=== PATIENT | male | born 1950 | race Caucasian/White ===

== ENCOUNTER 2018-11-07 14:04 | Emergency (ER) | payer MEDICARE, MEDICAID ==
[~2018-11-07] VITALS: Ht 167.6 cm; Wt 119.0 kg
[~2018-11-07 14:04] MED LIST: ALLO100T PO; CARV6.2548 PO; CLOP75TA16 PO; ESOM40CA PO; FURO40TA5 PO; HYDR-3927 GT; METO10TA94 PO; SIMV40TA5 PO; WARF3TAB28 PO
[2018-11-07] MEDS ORDERED: FAMOTIDINE 20MG/2ML VIAL IV STA (14:59)
[2018-11-07] MEDS ORDERED: MAGNESIUM/ALUMINUM HYDROXIDE/SIMETHICONE 30ML UDC PO STA (14:59)
[2018-11-07] MEDS ORDERED: ONDANSETRON HCL 4MG/2ML INJ IV STA (14:59)
[2018-11-07] MEDS ORDERED: MORPHINE SULFATE 4 MG/ML CPJ (NOT FOR IM USE) IV STA (14:59)
[2018-11-07 15:40] LABS: BASOPHILS % 1.1 % (0.0-2.0); EOSINOPHILS % 0.3 % (0.0-5.0); HEMATOCRIT. 45.1 % (42.0-52.0); HEMOGLOBIN. 14.9 g/dL (14.0-18.0); LYMPHOCYTES % 11.8 % (20.0-50.0); MEAN CORPUSCULAR HEMOGLOBIN 32.9 pg (28.0-32.0); MEAN CORPUSCULAR VOLUME 99.8 fL (80.0-94.0); MEAN PLATELET VOLUME 10.1 fl (7.4-10.4); MONOCYTES % 8.7 % (2.0-8.0); NEUTROPHILS % 78.1 % (40.0-76.0); PLATELET 132 x1000/uL (130-400); RED BLOOD CELL COUNT 4.52 mill/uL (4.7-6.1); RED CELL DISTRIBUTION WIDTH 15.4 % (11.6-14.6)
[2018-11-07 15:45] LABS: CHLORIDE 101 mEq/L (98-107)
[2018-11-07 15:46] LABS: INR 1.5; PROTHROMBIN TIME 15.7 sec (9.6-11.0)
[2018-11-07 16:55] LABS: CLARITY URINE CLEAR (CLEAR); COLOR URINE YELLOW (YELLOW); KETONES URINE NEGATIVE (NEGATIVE); LEUKOCYTE ESTERASE URINE NEGATIVE (NEGATIVE); NITRITE URINE NEGATIVE (NEGATIVE); OCCULT BLOOD URINE NEGATIVE (NEGATIVE); PH URINE 7.5 (4.5-8.0); PROTEIN URINE NEGATIVE (NEGATIVE); SPECIFIC GRAVITY URINE 1.008 (1.005-1.030)
[2018-11-07 18:00] VITALS: BP 114/76
== END 2018-11-07 18:36 | disposition home or self-care (01) ==
LOC: ER 14:04
DX: R18.8 Other ascites (principal); Z90.49 Acquired absence of other specified parts of digestive tract; Z95.0 Presence of cardiac pacemaker; Z79.899 Other long term (current) drug therapy
CPT/HCPCS: 36415; 71045; 74176; 80053; 81003; 83690; 85025; 85610; 93005; 96374; 96375; 99284; J2270; J2405; J3490

== ENCOUNTER 2018-11-12 12:19 | Inpatient (IN) | payer MEDICARE, MEDICAID ==
[~2018-11-12] VITALS: Ht 185.4 cm; Wt 107.2 kg
[2018-11-12 14:27] LABS: BASOPHILS % 0.6 % (0.0-2.0); EOSINOPHILS % 0.3 % (0.0-5.0); HEMATOCRIT. 46.8 % (42.0-52.0); HEMOGLOBIN. 15.6 g/dL (14.0-18.0); LYMPHOCYTES % 9.5 % (20.0-50.0); MEAN CORPUSCULAR HEMOGLOBIN 33.1 pg (28.0-32.0); MEAN CORPUSCULAR VOLUME 99.1 fL (80.0-94.0); MEAN PLATELET VOLUME 9.5 fl (7.4-10.4); MONOCYTES % 10.4 % (2.0-8.0); NEUTROPHILS % 79.2 % (40.0-76.0); PLATELET 140 x1000/uL (130-400); RED BLOOD CELL COUNT 4.73 mill/uL (4.7-6.1); RED CELL DISTRIBUTION WIDTH 15.5 % (11.6-14.6)
[2018-11-12 14:34] LABS: CHLORIDE 103 mEq/L (98-107)
[2018-11-12 14:36] LABS: INR 1.5; PARTIAL THROMBOPLASTIN TIME 30.5 sec (23.4-31.0); PROTHROMBIN TIME 14.8 sec (9.6-11.0)
[2018-11-12] MEDS ORDERED: FAMOTIDINE 20MG/2ML VIAL IV STA (14:51)
[2018-11-12] MEDS ORDERED: ONDANSETRON HCL 4MG/2ML INJ IV STA (14:51)
[2018-11-12] MEDS ORDERED: FUROSEMIDE 20MG/2ML VIAL IVP ONE (15:30)
[2018-11-12] MEDS ORDERED: HYDROCODONE/ACETAMINOPHEN 5/325MG TABLET PO PRN (16:15)
[2018-11-12] MEDS ORDERED: DOCUSATE SODIUM 100MG CAPSULE PO PRN (16:15)
[2018-11-12] MEDS ORDERED: LORAZEPAM 0.5MG TABLET PO PRN (16:15)
[2018-11-12] MEDS ORDERED: IPRATROPIUM/ALBUTEROL 0.5-3(2.5)MG/3ML NEB INH PRN (16:15)
[2018-11-12] MEDS ORDERED: GUAIFENESIN 200MG/10ML SUGAR FREE UDC PO PRN (16:15)
[2018-11-12] MEDS ORDERED: ACETAMINOPHEN 325MG TABLET PO PRN (16:15)
[2018-11-12] MEDS ORDERED: CLONIDINE 0.1MG TABLET PO PRN (16:15)
[2018-11-12] MEDS ORDERED: DIPHENHYDRAMINE 50MG/ML VIAL IV PRN (16:15)
[2018-11-12] MEDS ORDERED: ONDANSETRON HCL 4MG/2ML INJ IV PRN (16:15)
[2018-11-12] MEDS ORDERED: ACETAMINOPHEN 650MG SUPP PR PRN (16:15)
[2018-11-12] MEDS ORDERED: MAGNESIUM/ALUMINUM HYDROXIDE/SIMETHICONE 30ML UDC PO PRN (16:15)
[2018-11-12 16:42] LABS: BG BASE EXCESS 2.1 mmol/L (-2.0-2.0); BG CARBOXYHEMOGLOBIN 0.9 % (0.5-1.5); BG DEOXYHEMOGLOBIN 5.5 % (0.0-5.0); BG FRACTION INSPIRED OXYGEN 21; BG HCO3 ACT 25.7 mmol/L (22.0-26.0); BG OXYGEN SATURATION 94.5 % (92.0-98.5); BG OXYHEMOGLOBIN 93.6 % (94.0-97.0); BG PH 7.459 (7.350-7.450); BG PO2 73.1 mmHg (75.0-100.0); BG SAMPLE SITE RIGHT BRACHIAL; BG TOTAL HEMOGLOBIN 15.6 g/dL (12.0-18.0); BG VENT MODE ROOM AIR
[2018-11-12] MEDS ORDERED: ASPIRIN 81MG TABLET PO ONE (17:00)
[2018-11-12 17:26] LABS: *AMPHETAMINES SCREEN URINE NEGATIVE (NEGATIVE); *BARBITURATES SCREEN URINE NEGATIVE (NEGATIVE); *BENZODIAZEPINES SCREEN URINE NEGATIVE (NEGATIVE)
[2018-11-12 17:27] LABS: *COCAINE SCREEN URINE NEGATIVE (NEGATIVE); CANNABINOID URINE SCREEN NEGATIVE (NEGATIVE); METHADONE URINE SCREEN NEGATIVE (NEGATIVE); OPIATES URINE SCREEN NEGATIVE (NEGATIVE); PHENCYCLIDINE URINE SCREEN NEGATIVE (NEGATIVE)
[2018-11-12] MEDS: ENOXAPARIN 40MG/0.4ML SYR SUBCUT SCH (21:48)
[2018-11-12 22:55] VITALS: BP 109/73
[2018-11-12 23:06] LABS: CREATINE KINASE MB FRACTION 2.4 ng/mL (0.5-3.6)
[2018-11-12 23:55] VITALS: BP 109/73
[2018-11-13 01:07] LABS: CLARITY URINE CLEAR (CLEAR); COLOR URINE DARK YELLOW (YELLOW); KETONES URINE NEGATIVE (NEGATIVE); LEUKOCYTE ESTERASE URINE NEGATIVE (NEGATIVE); NITRITE URINE NEGATIVE (NEGATIVE); OCCULT BLOOD URINE NEGATIVE (NEGATIVE); PROTEIN URINE TRACE (NEGATIVE); SPECIFIC GRAVITY URINE 1.014 (1.005-1.030)
[2018-11-13 04:00] VITALS: BP 92/60
[2018-11-13 06:34] LABS: BASOPHILS % 0.8 % (0.0-2.0); EOSINOPHILS % 0.3 % (0.0-5.0); HEMATOCRIT. 46.1 % (42.0-52.0); HEMOGLOBIN. 15.2 g/dL (14.0-18.0); LYMPHOCYTES % 11.1 % (20.0-50.0); MEAN CORPUSCULAR HEMOGLOBIN 32.8 pg (28.0-32.0); MEAN CORPUSCULAR VOLUME 99.6 fL (80.0-94.0); NEUTROPHILS % 76.8 % (40.0-76.0); PLATELET 144 x1000/uL (130-400); RED BLOOD CELL COUNT 4.63 mill/uL (4.7-6.1); RED CELL DISTRIBUTION WIDTH 15.6 % (11.6-14.6)
[2018-11-13 07:39] LABS: CHLORIDE 104 mEq/L (98-107)
[2018-11-13 07:56] LABS: LDL CHOLESTEROL 53 mg/dL (5-100)
[2018-11-13 07:57] LABS: CREATINE KINASE 56 IU/L (39-308); CREATINE KINASE MB FRACTION 2.1 ng/mL (0.5-3.6); HDL CHOLESTEROL 23 mg/dL (40-59); T4 FREE 1.53 ng/dL (0.76-1.46)
[2018-11-13 08:00] VITALS: BP 104/64
[2018-11-13] MEDS: FUROSEMIDE 40MG/4ML VIAL IV SCH (09:24)
[2018-11-13] MEDS: ASPIRIN 81MG EC TABLET PO SCH (09:24)
[2018-11-13 12:00] VITALS: BP 128/85
[2018-11-13 16:00] VITALS: BP 95/57
[2018-11-13 20:00] VITALS: BP 104/71
[2018-11-13] MEDS: ENOXAPARIN 40MG/0.4ML SYR SUBCUT SCH (21:52)
[2018-11-14] VITALS: BP 120/62
[2018-11-14 04:00] VITALS: BP 93/63
[2018-11-14 06:12] LABS: BASOPHILS % 0.8 % (0.0-2.0); EOSINOPHILS % 0.6 % (0.0-5.0); HEMATOCRIT. 45.2 % (42.0-52.0); HEMOGLOBIN. 14.9 g/dL (14.0-18.0); LYMPHOCYTES % 14.6 % (20.0-50.0); MEAN CORPUSCULAR HEMOGLOBIN 32.7 pg (28.0-32.0); MEAN CORPUSCULAR VOLUME 99.1 fL (80.0-94.0); MEAN PLATELET VOLUME 9.9 fl (7.4-10.4); MONOCYTES % 12.2 % (2.0-8.0); NEUTROPHILS % 71.8 % (40.0-76.0); PLATELET 144 x1000/uL (130-400); RED BLOOD CELL COUNT 4.56 mill/uL (4.7-6.1); RED CELL DISTRIBUTION WIDTH 15.2 % (11.6-14.6)
[2018-11-14 08:00] VITALS: BP 106/63
[2018-11-14] MEDS: ASPIRIN 81MG EC TABLET PO SCH (08:34)
[2018-11-14] MEDS: ENOXAPARIN 30MG/0.3ML SYR SUBCUT SCH ×2 (08:35→20:15)
[2018-11-14] MEDS: FUROSEMIDE 40MG/4ML VIAL IV SCH (09:00)
[2018-11-14 12:00] VITALS: BP 114/77
[2018-11-14 16:00] VITALS: BP 117/76
[2018-11-14 20:00] VITALS: BP 110/78
[2018-11-15] VITALS: BP 114/78
[2018-11-15 04:00] VITALS: BP 98/66
[2018-11-15 06:52] LABS: BASOPHILS % 0.6 % (0.0-2.0); EOSINOPHILS % 0.3 % (0.0-5.0); HEMATOCRIT. 44.9 % (42.0-52.0); HEMOGLOBIN. 14.7 g/dL (14.0-18.0); LYMPHOCYTES % 15.9 % (20.0-50.0); MEAN CORPUSCULAR HEMOGLOBIN 32.6 pg (28.0-32.0); MEAN CORPUSCULAR VOLUME 99.4 fL (80.0-94.0); MEAN PLATELET VOLUME 9.7 fl (7.4-10.4); MONOCYTES % 11.3 % (2.0-8.0); NEUTROPHILS % 71.9 % (40.0-76.0); PLATELET 138 x1000/uL (130-400); RED BLOOD CELL COUNT 4.52 mill/uL (4.7-6.1); RED CELL DISTRIBUTION WIDTH 15.2 % (11.6-14.6)
[2018-11-15 08:00] VITALS: BP 108/69
[2018-11-15] MEDS: ASPIRIN 81MG EC TABLET PO SCH (08:59)
[2018-11-15] MEDS: ENOXAPARIN 30MG/0.3ML SYR SUBCUT SCH (09:00)
[2018-11-15] MEDS: FUROSEMIDE 40MG/4ML VIAL IV SCH (09:00)
[2018-11-15 12:00] VITALS: BP 114/62
[2018-11-15] MEDS ORDERED: SORBITOL 70% SOLN 30ML PO NR (12:45)
[2018-11-15 16:00] VITALS: BP 114/72
[2018-11-15] MEDS ORDERED: DOCUSATE SODIUM 100MG CAPSULE PO SCH (17:00)
[2018-11-15 17:21] LABS: HEPATITIS B SURFACE ANTIGEN NEGATIVE
[2018-11-15 17:51] LABS: HEPATITIS A AB IGM NEGATIVE (NEGATIVE)
[2018-11-15 18:30] VITALS: BP 140/70
== END 2018-11-15 17:00 | disposition home or self-care (01) | DRG 291 ==
LOC: ER 12:19 → 5WST 15:36 → EDBEDREQ 15:40 → ENRESERV 22:22 → CANRESERV 22:22 → ENRESERV 22:23
PROVIDERS: ADMIT Internal Medicine; ATTEND Internal Medicine
PROC: 4B02XTZ Measurement of Cardiac Defibrillator, External Approach (ICD-10-PCS; principal; 2018-11-13)
DX: I13.0 Hypertensive heart and chronic kidney disease with heart failure and stage 1 through stage 4 chronic kidney disease, or unspecified chronic kidney disease (principal); I50.23 Acute on chronic systolic (congestive) heart failure; I48.1 Persistent atrial fibrillation; D68.59 Other primary thrombophilia; K76.6 Portal hypertension; R18.8 Other ascites; E66.2 Morbid (severe) obesity with alveolar hypoventilation; I42.0 Dilated cardiomyopathy; N32.9 Bladder disorder, unspecified; R16.0 Hepatomegaly, not elsewhere classified; N18.9 Chronic kidney disease, unspecified; K59.00 Constipation, unspecified; R74.0 Nonspecific elevation of levels of transaminase and lactic acid dehydrogenase [LDH]; E80.6 Other disorders of bilirubin metabolism; K74.60 Unspecified cirrhosis of liver; E78.5 Hyperlipidemia, unspecified; K57.90 Diverticulosis of intestine, part unspecified, without perforation or abscess without bleeding; R73.9 Hyperglycemia, unspecified; I48.2 Chronic atrial fibrillation; Z79.01 Long term (current) use of anticoagulants; Z79.02 Long term (current) use of antithrombotics/antiplatelets; Z68.31 Body mass index [BMI] 31.0-31.9, adult; Z95.810 Presence of automatic (implantable) cardiac defibrillator; Z90.49 Acquired absence of other specified parts of digestive tract; Z95.0 Presence of cardiac pacemaker
CPT/HCPCS: 36415; 36600; 71045; 74176; 76705; 80048; 80061; 80076; 80162; 80305; 82140; 82150; 82375; 82550; 82553; 82805; 83036; 83735; 83880; 84439; 84443; 84484; 86705; 86709; 86803; 87340; 93005; 93306; 93970; 94618; 96374; 96375; 97162; 99291; J1650; J1940; J2405; J3490

== ENCOUNTER 2018-11-17 19:41 | Emergency (ER) | payer MEDICARE, MEDICAID ==
[~2018-11-17] VITALS: Ht 177.8 cm; Wt 111.7 kg
[~2018-11-17 19:41] MED LIST changes: -CARV6.2548 PO; -FURO40TA5 PO; -METO10TA94 PO; -SIMV40TA5 PO; -WARF3TAB28 PO
[2018-11-17 23:03] LABS: BASOPHILS % 0.7 % (0.0-2.0); EOSINOPHILS % 0.3 % (0.0-5.0); HEMOGLOBIN. 15.3 g/dL (14.0-18.0); LYMPHOCYTES % 9.9 % (20.0-50.0); MEAN CORPUSCULAR HEMOGLOBIN 32.2 pg (28.0-32.0); MEAN CORPUSCULAR VOLUME 98.5 fL (80.0-94.0); MEAN PLATELET VOLUME 9.3 fl (7.4-10.4); MONOCYTES % 10.1 % (2.0-8.0); PLATELET 158 x1000/uL (130-400); RED BLOOD CELL COUNT 4.77 mill/uL (4.7-6.1); RED CELL DISTRIBUTION WIDTH 15.5 % (11.6-14.6)
[2018-11-17 23:07] LABS: CHLORIDE 102 mEq/L (98-107)
[2018-11-17 23:09] LABS: INR 1.5; PROTHROMBIN TIME 15.3 sec (9.6-11.0)
[2018-11-18 00:11] LABS: CLARITY URINE CLEAR (CLEAR); COLOR URINE DARK YELLOW (YELLOW); KETONES URINE NEGATIVE (NEGATIVE); LEUKOCYTE ESTERASE URINE TRACE (NEGATIVE); NITRITE URINE NEGATIVE (NEGATIVE); OCCULT BLOOD URINE NEGATIVE (NEGATIVE); PROTEIN URINE 1+ (NEGATIVE); SPECIFIC GRAVITY URINE 1.017 (1.005-1.030)
[2018-11-18 03:00] VITALS: BP 124/86
== END 2018-11-18 03:47 | disposition home or self-care (01) ==
LOC: ER 20:00
DX: R10.13 Epigastric pain (principal); I51.9 Heart disease, unspecified; Z90.49 Acquired absence of other specified parts of digestive tract; Z79.899 Other long term (current) drug therapy
CPT/HCPCS: 36415; 74176; 99284

== ENCOUNTER 2018-11-20 21:32 | Inpatient (IN) | payer MEDICARE, MEDICAID ==
[~2018-11-20] VITALS: Ht 182.9 cm; Wt 109.5 kg
[2018-11-20 22:30] VITALS: BP 120/77
[2018-11-20 23:30] VITALS: BP 126/77
[2018-11-21] VITALS (15 sets, daily range): BP systolic 91–135; BP diastolic 30–79
[2018-11-21] MEDS ORDERED: ATOR10TA69 PO (00:09)
[2018-11-21] MEDS ORDERED: SPIR50TA5 PO (00:11)
[2018-11-21] MEDS ORDERED: SACU1TAB PO (00:11)
[2018-11-21] MEDS ORDERED: OMEP20CA10 PO (00:12)
[2018-11-21] MEDS ORDERED: FURO80TA3 PO (00:14)
[2018-11-21] MEDS ORDERED: POTA10TA11 PO (00:14)
[2018-11-21] MEDS ORDERED: CARV3.1242 PO (00:16)
[2018-11-21] MEDS ORDERED: ASPI-1158 PO (00:16)
[2018-11-21] MEDS ORDERED: DIGO125T82 PO (00:17)
[2018-11-21] MEDS ORDERED: AMIO100T4 PO (00:18)
[2018-11-21] MEDS ORDERED: MEXI200C PO (00:19)
[2018-11-21] MEDS ORDERED: APIX5TAB PO (00:22)
[2018-11-21] MEDS ORDERED: ALEN70TA46 PO (00:33)
[2018-11-21] MEDS ORDERED: ONDANSETRON HCL 4MG/2ML INJ IV PRN (01:00)
[2018-11-21] MEDS ORDERED: NON FORMULARY PATIENT HOME MED XX SCH (03:15)
[2018-11-21] MEDS ORDERED: ENOXAPARIN 40MG/0.4ML SYR SUBCUT SCH (06:00)
[2018-11-21 06:35] LABS: BASOPHILS % 0.7 % (0.0-2.0); EOSINOPHILS % 0.6 % (0.0-5.0); HEMATOCRIT. 42.9 % (42.0-52.0); HEMOGLOBIN. 14.1 g/dL (14.0-18.0); LYMPHOCYTES % 14.7 % (20.0-50.0); MEAN CORPUSCULAR VOLUME 97.2 fL (80.0-94.0); MEAN PLATELET VOLUME 9.5 fl (7.4-10.4); MONOCYTES % 11.1 % (2.0-8.0); NEUTROPHILS % 72.9 % (40.0-76.0); PLATELET 137 x1000/uL (130-400); RED BLOOD CELL COUNT 4.41 mill/uL (4.7-6.1); RED CELL DISTRIBUTION WIDTH 15.3 % (11.6-14.6)
[2018-11-21 07:34] LABS: CHLORIDE 104 mEq/L (98-107)
[2018-11-21] MEDS ORDERED: DOBUTAMINE 250MG PREMIX 250 ML IV SCH (08:00)
[2018-11-21] MEDS: OMEPRAZOLE 20MG CAPSULE EXTENDED RELEASE PO SCH (08:14)
[2018-11-21] MEDS ORDERED: APIXABAN 5 MG TABLET PO SCH (09:00)
[2018-11-21] MEDS ORDERED: MEXILETINE HCL 200 MG CAPSULE PO SCH (09:00)
[2018-11-21] MEDS ORDERED: POTASSIUM CHLORIDE 8 MEQ TABLET.SA PO SCH (09:00)
[2018-11-21] MEDS ORDERED: POTASSIUM CHLORIDE 10MEQ TABLET SR PO SCH (09:00)
[2018-11-21] MEDS: APIXABAN 5 MG TABLET PO SCH ×2 (09:39→18:07)
[2018-11-21] MEDS: SPIRONOLACTONE 50MG TABLET PO SCH (09:39)
[2018-11-21] MEDS: CARVEDILOL 3.125 MG TABLET PO SCH ×2 (09:39→21:06)
[2018-11-21] MEDS: ALLOPURINOL 100 MG TABLET PO SCH ×2 (09:39→18:07)
[2018-11-21] MEDS: ASPIRIN 81MG TABLET PO SCH (09:40)
[2018-11-21 14:56] LABS: BG BASE EXCESS 2.6 mmol/L (-2.0-2.0); BG DEOXYHEMOGLOBIN 2.9 % (0.0-5.0); BG FRACTION INSPIRED OXYGEN 21; BG HCO3 ACT 25.6 mmol/L (22.0-26.0); BG METHEMOGLOBIN 0.4 % (0.0-1.5); BG OXYGEN SATURATION 97.1 % (92.0-98.5); BG OXYHEMOGLOBIN 95.7 % (94.0-97.0); BG PCO2 34.9 mmHg (35.0-45.0); BG PH 7.484 (7.350-7.450); BG PO2 86.7 mmHg (75.0-100.0); BG SAMPLE SITE RIGHT RADIAL; BG TOTAL HEMOGLOBIN 14.7 g/dL (12.0-18.0); BG VENT MODE ROOM AIR
[2018-11-21] MEDS: FUROSEMIDE 40MG/4ML VIAL IVP SCH ×2 (15:20→23:37)
[2018-11-21 16:11] LABS: INR 1.6; PROTHROMBIN TIME 16.1 sec (9.6-11.0)
[2018-11-21] MEDS: DOBUTAMINE 250MG PREMIX 250 ML IV SCH ×3 (16:34→23:46)
[2018-11-21] MEDS: DIGOXIN 125MCG TABLET PO SCH (18:07)
[2018-11-21] MEDS: ATORVASTATIN CALCIUM 10MG TABLET PO SCH (21:06)
[2018-11-21 22:53] LABS: CLARITY URINE CLEAR (CLEAR); COLOR URINE YELLOW (YELLOW); KETONES URINE NEGATIVE (NEGATIVE); LEUKOCYTE ESTERASE URINE NEGATIVE (NEGATIVE); NITRITE URINE NEGATIVE (NEGATIVE); OCCULT BLOOD URINE NEGATIVE (NEGATIVE); PH URINE 8.5 (4.5-8.0); PROTEIN URINE NEGATIVE (NEGATIVE); SPECIFIC GRAVITY URINE 1.006 (1.005-1.030)
[2018-11-22] VITALS (15 sets, daily range): BP systolic 79–123; BP diastolic 45–76
[2018-11-22] MEDS: DOBUTAMINE 250MG PREMIX 250 ML IV SCH ×3 (03:39→18:54)
[2018-11-22] MEDS: FUROSEMIDE 40MG/4ML VIAL IVP SCH ×2 (06:30→16:20)
[2018-11-22] MEDS: OMEPRAZOLE 20MG CAPSULE EXTENDED RELEASE PO SCH (06:30)
[2018-11-22 06:55] LABS: HEMATOCRIT 41.5 % (42.0-52.0); HEMOGLOBIN 13.6 g/dL (14.0-18.0); MEAN CORPUSCULAR HEMOGLOBIN 31.9 pg (28.0-32.0); MEAN CORPUSCULAR VOLUME 97.4 fL (80.0-94.0); PLATELET 135 x1000/uL (130-400); RED BLOOD CELL COUNT 4.26 mill/uL (4.7-6.1); RED CELL DISTRIBUTION WIDTH 15.4 % (11.6-14.6)
[2018-11-22 07:22] LABS: CHLORIDE 103 mEq/L (98-107)
[2018-11-22] MEDS ORDERED: POTASSIUM CHLORIDE 20MEQ TABLET SR PO SCH (09:00)
[2018-11-22] MEDS: ALLOPURINOL 100 MG TABLET PO SCH ×2 (10:19→18:53)
[2018-11-22] MEDS: SPIRONOLACTONE 50MG TABLET PO SCH (10:21)
[2018-11-22] MEDS: APIXABAN 5 MG TABLET PO SCH ×2 (10:22→18:53)
[2018-11-22] MEDS: CARVEDILOL 3.125 MG TABLET PO SCH ×2 (10:22→21:00)
[2018-11-22] MEDS: ASPIRIN 81MG TABLET PO SCH (10:23)
[2018-11-22] MEDS: DIGOXIN 125MCG TABLET PO SCH (18:00)
[2018-11-22] MEDS: POTASSIUM CHLORIDE 20MEQ TABLET SR PO SCH (18:53)
[2018-11-22] MEDS: ATORVASTATIN CALCIUM 10MG TABLET PO SCH (22:35)
[2018-11-23] VITALS (13 sets, daily range): BP systolic 92–137; BP diastolic 49–91
[2018-11-23] MEDS: FUROSEMIDE 40MG/4ML VIAL IVP SCH ×2 (00:55→07:00)
[2018-11-23] MEDS: DOBUTAMINE 250MG PREMIX 250 ML IV SCH ×2 (02:20→09:02)
[2018-11-23 05:58] LABS: HEMOGLOBIN 13.4 g/dL (14.0-18.0); MEAN CORPUSCULAR HEMOGLOBIN 31.6 pg (28.0-32.0); MEAN CORPUSCULAR VOLUME 96.9 fL (80.0-94.0); PLATELET 126 x1000/uL (130-400); RED BLOOD CELL COUNT 4.23 mill/uL (4.7-6.1); RED CELL DISTRIBUTION WIDTH 15.3 % (11.6-14.6)
[2018-11-23] MEDS: OMEPRAZOLE 20MG CAPSULE EXTENDED RELEASE PO SCH (09:01)
[2018-11-23] MEDS: CARVEDILOL 3.125 MG TABLET PO SCH ×2 (09:01→21:33)
[2018-11-23] MEDS: ASPIRIN 81MG TABLET PO SCH (09:01)
[2018-11-23] MEDS: APIXABAN 5 MG TABLET PO SCH ×2 (09:01→16:51)
[2018-11-23] MEDS: POTASSIUM CHLORIDE 20MEQ TABLET SR PO SCH ×2 (09:01→16:51)
[2018-11-23] MEDS: SPIRONOLACTONE 50MG TABLET PO SCH (09:02)
[2018-11-23] MEDS: ALLOPURINOL 100 MG TABLET PO SCH ×2 (09:02→16:51)
[2018-11-23] MEDS ORDERED: SIMETHICONE 80MG TABLET CHEW PO PRN (14:45)
[2018-11-23] MEDS: DIGOXIN 125MCG TABLET PO SCH (18:35)
[2018-11-23] MEDS: TRAMADOL 50MG TABLET PO PRN (21:31)
[2018-11-23] MEDS: ATORVASTATIN CALCIUM 10MG TABLET PO SCH (21:33)
[2018-11-23] MEDS: FUROSEMIDE 40MG TABLET PO SCH (21:33)
[2018-11-24] VITALS (12 sets, daily range): BP systolic 96–137; BP diastolic 57–88
[2018-11-24 06:18] LABS: HEMATOCRIT 45.8 % (42.0-52.0); HEMOGLOBIN 14.9 g/dL (14.0-18.0); MEAN CORPUSCULAR HEMOGLOBIN 31.9 pg (28.0-32.0); MEAN CORPUSCULAR VOLUME 97.7 fL (80.0-94.0); PLATELET 152 x1000/uL (130-400); RED BLOOD CELL COUNT 4.68 mill/uL (4.7-6.1); RED CELL DISTRIBUTION WIDTH 15.7 % (11.6-14.6)
[2018-11-24] MEDS: TRAMADOL 50MG TABLET PO PRN (06:30)
[2018-11-24] MEDS: OMEPRAZOLE 20MG CAPSULE EXTENDED RELEASE PO SCH (06:31)
[2018-11-24] MEDS: ALLOPURINOL 100 MG TABLET PO SCH (08:39)
[2018-11-24] MEDS: APIXABAN 5 MG TABLET PO SCH (08:39)
[2018-11-24] MEDS: CARVEDILOL 3.125 MG TABLET PO SCH (08:39)
[2018-11-24] MEDS: SPIRONOLACTONE 50MG TABLET PO SCH (08:39)
[2018-11-24] MEDS: FUROSEMIDE 40MG TABLET PO SCH (08:39)
[2018-11-24] MEDS: ASPIRIN 81MG TABLET PO SCH (08:39)
[2018-11-24] MEDS: POTASSIUM CHLORIDE 20MEQ TABLET SR PO SCH (08:39)
[2018-11-24] MEDS ORDERED: POLYVINYL ALCOHOL OPHTH DROPS 15ML BOTHEYE PRN (13:00)
[2018-11-24] MEDS ORDERED: CIPROFLOXACIN 0.3% OPHTH SOLN 2.5ML BOTHEYE SCH (13:00)
[2018-11-24] MEDS ORDERED: DOCUSATE SODIUM 100MG CAPSULE PO SCH (14:00)
[2018-11-24] MEDS ORDERED: FUROSEMIDE 40MG TABLET PO SCH (18:00)
== END 2018-11-24 17:00 | disposition home health service (06) | DRG 291 ==
LOC: UNDOADMIN 21:32 → 7WST 21:32 → 5EST 11-21 08:59
PROVIDERS: ADMIT Internal Medicine; ATTEND Internal Medicine
DX: I13.0 Hypertensive heart and chronic kidney disease with heart failure and stage 1 through stage 4 chronic kidney disease, or unspecified chronic kidney disease (principal); I50.23 Acute on chronic systolic (congestive) heart failure; I48.1 Persistent atrial fibrillation; D68.59 Other primary thrombophilia; E87.3 Alkalosis; I42.0 Dilated cardiomyopathy; R06.03 Acute respiratory distress; D69.6 Thrombocytopenia, unspecified; E78.5 Hyperlipidemia, unspecified; N18.9 Chronic kidney disease, unspecified; I50.810 Right heart failure, unspecified; D64.9 Anemia, unspecified; K74.60 Unspecified cirrhosis of liver; E87.5 Hyperkalemia; G47.33 Obstructive sleep apnea (adult) (pediatric); H10.9 Unspecified conjunctivitis; M10.9 Gout, unspecified; R04.0 Epistaxis; Z79.01 Long term (current) use of anticoagulants; Z79.899 Other long term (current) drug therapy; Z95.810 Presence of automatic (implantable) cardiac defibrillator
CPT/HCPCS: 36415; 36600; 71045; 74176; 80048; 80076; 82375; 82805; 85027; 93005; 97162; J1250; J1940

== ENCOUNTER 2019-06-06 14:20 | Emergency (ER) | payer MEDICARE, OTHER ==
[~2019-06-06] VITALS: Ht 185.4 cm; Wt 100.0 kg
[~2019-06-06 14:20] MED LIST changes: +ALEN70TA68 PO; +AMIO100T4 PO; +APIX5TAB PO; +ASPI-1158 PO; +ATOR10TA69 PO; +CARV3.1242 PO; -CLOP75TA16 PO; +DIGO125T82 PO; -ESOM40CA PO; +FURO80TA3 PO; -HYDR-3927 GT; +MEXI200C PO; +OMEP20CA5 PO; +POTA10TA11 PO; +SACU1TAB PO; +SPIR50TA5 PO
[2019-06-06 17:16] LABS: BASOPHILS % 0.7 % (0.0-2.0); HEMATOCRIT. 46.8 % (42.0-52.0); HEMOGLOBIN. 15.2 g/dL (14.0-18.0); MEAN CORPUSCULAR HEMOGLOBIN 29.8 pg (28.0-32.0); MEAN CORPUSCULAR VOLUME 91.8 fL (80.0-94.0); MEAN PLATELET VOLUME 9.4 fl (7.4-10.4); MONOCYTES % 12.8 % (2.0-8.0); NEUTROPHILS % 74.5 % (40.0-76.0); PLATELET 163 x1000/uL (130-400); RED BLOOD CELL COUNT 5.09 mill/uL (4.7-6.1); RED CELL DISTRIBUTION WIDTH 18.6 % (11.6-14.6)
[2019-06-06 17:24] LABS: INR 1.5; PARTIAL THROMBOPLASTIN TIME 30.9 sec (23.4-31.0)
[2019-06-06 18:50] VITALS: BP 101/64
[2019-06-06 21:24] LABS: CHLORIDE 104 mEq/L (98-107)
== END 2019-06-06 18:50 | disposition home or self-care (01) ==
LOC: ER 14:20
DX: I83.91 Asymptomatic varicose veins of right lower extremity (principal); I11.9 Hypertensive heart disease without heart failure; E78.00 Pure hypercholesterolemia, unspecified; Z95.0 Presence of cardiac pacemaker; Z79.82 Long term (current) use of aspirin; Z90.49 Acquired absence of other specified parts of digestive tract
CPT/HCPCS: 36415; 99283

== ENCOUNTER 2019-07-22 12:38 | Emergency (ER) | payer MEDICARE, OTHER ==
[~2019-07-22] VITALS: Ht 175.3 cm; Wt 87.0 kg
[2019-07-22 16:24] LABS: HEMATOCRIT. 43.6 % (42.0-52.0); HEMOGLOBIN. 14.1 g/dL (14.0-18.0); MEAN CORPUSCULAR HEMOGLOBIN 28.8 pg (28.0-32.0); MEAN CORPUSCULAR VOLUME 88.9 fL (80.0-94.0); MEAN PLATELET VOLUME 8.8 fl (7.4-10.4); PLATELET 192 x1000/uL (130-400); RED BLOOD CELL COUNT 4.91 mill/uL (4.7-6.1); RED CELL DISTRIBUTION WIDTH 22.7 % (11.6-14.6)
[2019-07-22 16:27] LABS: CHLORIDE 104 mEq/L (98-107)
[2019-07-22 16:28] LABS: INR 1.4; PROTHROMBIN TIME 13.9 sec (9.6-11.0)
[2019-07-22 18:00] VITALS: BP 119/78
[2019-07-22 21:02] LABS: ATYPICAL LYMPHOCYTES 1; PLATELET ESTIMATE NORMAL
== END 2019-07-22 18:02 | disposition home or self-care (01) ==
LOC: ER 13:15
DX: I83.91 Asymptomatic varicose veins of right lower extremity (principal); I10 Essential (primary) hypertension; E78.00 Pure hypercholesterolemia, unspecified; Z79.899 Other long term (current) drug therapy; Z90.49 Acquired absence of other specified parts of digestive tract; Z95.0 Presence of cardiac pacemaker; R42 Dizziness and giddiness
CPT/HCPCS: 36415; 80053; 85025; 99283

== ENCOUNTER 2019-08-20 18:20 | Inpatient (IN) | payer MEDICARE, OTHER ==
[~2019-08-20] VITALS: Ht 180.3 cm; Wt 94.3 kg
[~2019-08-20 18:20] MED LIST changes: +DIGO125T80 PO; -DIGO125T82 PO; +OMEP20CA14 PO; -OMEP20CA5 PO
[2019-08-20] MEDS ORDERED: SODIUM CHLORIDE 0.9% 1,000 ML IV ONE ×2 (20:21→23:26)
[2019-08-20] MEDS ORDERED: VANCOMYCIN 1 G PREMIX 200 ML IV ONE (20:30)
[2019-08-20] MEDS ORDERED: PIPERACILLIN/TAZ 3.375G PREMIX 50 ML IV ONE (20:30)
[2019-08-20 21:05] LABS: HEMATOCRIT. 42.3 % (42.0-52.0); HEMOGLOBIN. 13.9 g/dL (14.0-18.0); MEAN CORPUSCULAR HEMOGLOBIN 29.5 pg (28.0-32.0); MEAN CORPUSCULAR VOLUME 89.5 fL (80.0-94.0); MEAN PLATELET VOLUME 8.4 fl (7.4-10.4); PLATELET 194 x1000/uL (130-400); RED BLOOD CELL COUNT 4.72 mill/uL (4.7-6.1); RED CELL DISTRIBUTION WIDTH 23.3 % (11.6-14.6)
[2019-08-20 21:11] LABS: CHLORIDE 94 mEq/L (98-107); INR 1.1; PROTHROMBIN TIME 11.6 sec (9.6-11.0)
[2019-08-20 21:14] LABS: ETHANOL BLOOD < 10 mg/dL
[2019-08-20 22:00] LABS: CLARITY URINE CLEAR (CLEAR); COLOR URINE YELLOW (YELLOW); KETONES URINE NEGATIVE (NEGATIVE); LEUKOCYTE ESTERASE URINE NEGATIVE (NEGATIVE); NITRITE URINE NEGATIVE (NEGATIVE); OCCULT BLOOD URINE NEGATIVE (NEGATIVE); PH URINE 7.5 (4.5-8.0); PROTEIN URINE NEGATIVE (NEGATIVE); SPECIFIC GRAVITY URINE 1.012 (1.005-1.030)
[2019-08-20 22:07] LABS: PLATELET ESTIMATE NORMAL
[2019-08-20 22:22] LABS: *AMPHETAMINES SCREEN URINE NEGATIVE (NEGATIVE); *BARBITURATES SCREEN URINE NEGATIVE (NEGATIVE); *BENZODIAZEPINES SCREEN URINE NEGATIVE (NEGATIVE); *COCAINE SCREEN URINE NEGATIVE (NEGATIVE)
[2019-08-20 22:23] LABS: CANNABINOID URINE SCREEN NEGATIVE (NEGATIVE); METHADONE URINE SCREEN NEGATIVE (NEGATIVE); OPIATES URINE SCREEN NEGATIVE (NEGATIVE); PHENCYCLIDINE URINE SCREEN NEGATIVE (NEGATIVE)
[2019-08-20] MEDS ORDERED: HYDROCODONE/ACETAMINOPHEN 5/325MG TABLET PO ONE (23:30)
[2019-08-20] MEDS ORDERED: ASPIRIN 325MG EC TABLET PO ONE (23:30)
[2019-08-21] VITALS (63 sets, daily range): BP systolic 68–125; BP diastolic 28–83
[2019-08-21] MEDS ORDERED: NOREPINEPHRINE 4MG/250ML PMX 250 ML IV ONE ×2 (01:30→11:00)
[2019-08-21] MEDS ORDERED: ONDANSETRON HCL 4MG/2ML INJ IV PRN (08:00)
[2019-08-21] MEDS ORDERED: PIPERACILLIN/TAZ 3.375G PREMIX 50 ML IV SCH (08:00)
[2019-08-21] MEDS ORDERED: ACETAMINOPHEN 650MG SUPP PR PRN (08:00)
[2019-08-21] MEDS ORDERED: VANCOMYCIN 1 G PREMIX 200 ML IV SCH (08:00)
[2019-08-21] MEDS ORDERED: FUROSEMIDE 40MG TABLET PO SCH (10:00)
[2019-08-21] MEDS ORDERED: CARVEDILOL 3.125 MG TABLET PO SCH (10:00)
[2019-08-21] MEDS ORDERED: ASPIRIN 81MG EC TABLET PO SCH (10:00)
[2019-08-21] MEDS ORDERED: SPIRONOLACTONE 50MG TABLET PO SCH (11:00)
[2019-08-21] MEDS ORDERED: POTASSIUM CHLORIDE 20MEQ/PACKET PO SCH (11:00)
[2019-08-21] MEDS: ALLOPURINOL 100 MG TABLET PO SCH ×2 (11:31→20:28)
[2019-08-21] MEDS: PIPERACILLIN/TAZOBACTAM 3.375 G in DEXT 5% WATER 100 ML IV SCH ×2 (11:31→17:55)
[2019-08-21] MEDS: OMEPRAZOLE 20MG CAPSULE EXTENDED RELEASE PO SCH (11:31)
[2019-08-21] MEDS: AMIODARONE HCL 200 MG TABLET PO SCH ×2 (11:31→20:28)
[2019-08-21] MEDS ORDERED: APIXABAN 5 MG TABLET PO SCH (12:00)
[2019-08-21] MEDS: VANCOMYCIN 1250MG in DEXTROSE 5% WATER 250ML IV SCH (13:46)
[2019-08-21] MEDS: MEXILETINE HCL 200 MG CAPSULE PO SCH ×2 (13:49→20:28)
[2019-08-21] MEDS ORDERED: MEDICATION NOT ON FORMULARY EA (Amiodarone HCl 200 MG) PO SCH (17:00)
[2019-08-21] MEDS: DIGOXIN 125MCG TABLET PO SCH (17:54)
[2019-08-21] MEDS: CARVEDILOL 3.125 MG TABLET PO SCH (20:22)
[2019-08-21] MEDS: ATORVASTATIN CALCIUM 10MG TABLET PO SCH (20:28)
[2019-08-21] MEDS ORDERED: ATORVASTATIN CALCIUM 10MG TABLET PO SCH (21:00)
[2019-08-21] MEDS: NOREPINEPHRINE 4 MG in DEXT 5% WATER 246 ML IV PRN (21:54)
[2019-08-22] VITALS (97 sets, daily range): BP systolic 74–169; BP diastolic 17–132
[2019-08-22 00:29] LABS: CREATINE KINASE MB FRACTION 2.3 ng/mL (0.5-3.6)
[2019-08-22] MEDS: PIPERACILLIN/TAZOBACTAM 3.375 G in DEXT 5% WATER 100 ML IV SCH ×5 (00:42→23:32)
[2019-08-22 05:22] LABS: BASOPHILS % 0.5 % (0.0-2.0); EOSINOPHILS % 0.2 % (0.0-5.0); HEMATOCRIT. 40.2 % (42.0-52.0); LYMPHOCYTES % 9.8 % (20.0-50.0); MEAN CORPUSCULAR HEMOGLOBIN 29.1 pg (28.0-32.0); MEAN CORPUSCULAR VOLUME 90.1 fL (80.0-94.0); MEAN PLATELET VOLUME 8.1 fl (7.4-10.4); MONOCYTES % 7.1 % (2.0-8.0); NEUTROPHILS % 82.4 % (40.0-76.0); PLATELET 186 x1000/uL (130-400); RED BLOOD CELL COUNT 4.47 mill/uL (4.7-6.1); RED CELL DISTRIBUTION WIDTH 23.6 % (11.6-14.6)
[2019-08-22 06:04] LABS: CHLORIDE 101 mEq/L (98-107)
[2019-08-22 06:14] LABS: T4 FREE 1.26 ng/dL (0.76-1.46)
[2019-08-22] MEDS: OMEPRAZOLE 20MG CAPSULE EXTENDED RELEASE PO SCH (06:27)
[2019-08-22] MEDS: VANCOMYCIN 1250MG in DEXTROSE 5% WATER 250ML IV SCH (07:00)
[2019-08-22] MEDS: APIXABAN 5 MG TABLET PO SCH ×2 (08:02→17:00)
[2019-08-22] MEDS: ALLOPURINOL 100 MG TABLET PO SCH ×2 (08:03→21:38)
[2019-08-22] MEDS: MEXILETINE HCL 200 MG CAPSULE PO SCH ×2 (08:03→21:30)
[2019-08-22] MEDS: CARVEDILOL 3.125 MG TABLET PO SCH ×2 (08:03→21:00)
[2019-08-22] MEDS: AMIODARONE HCL 200 MG TABLET PO SCH ×2 (08:03→21:38)
[2019-08-22] MEDS: ACETAMINOPHEN 325MG TABLET PO PRN (08:36)
[2019-08-22] MEDS: DIGOXIN 125MCG TABLET PO SCH (18:00)
[2019-08-22] MEDS: ATORVASTATIN CALCIUM 10MG TABLET PO SCH (21:37)
[2019-08-23] VITALS (91 sets, daily range): BP systolic 60–121; BP diastolic 19–74
[2019-08-23] MEDS: VANCOMYCIN 1250MG in DEXTROSE 5% WATER 250ML IV SCH (00:24)
[2019-08-23] MEDS: OMEPRAZOLE 20MG CAPSULE EXTENDED RELEASE PO SCH (06:02)
[2019-08-23] MEDS: PIPERACILLIN/TAZOBACTAM 3.375 G in DEXT 5% WATER 100 ML IV SCH ×2 (06:02→11:56)
[2019-08-23] MEDS: CARVEDILOL 3.125 MG TABLET PO SCH ×2 (09:00→20:37)
[2019-08-23] MEDS: AMIODARONE HCL 200 MG TABLET PO SCH ×2 (09:03→20:40)
[2019-08-23] MEDS: APIXABAN 5 MG TABLET PO SCH ×2 (09:03→17:17)
[2019-08-23] MEDS: MEXILETINE HCL 200 MG CAPSULE PO SCH ×2 (09:03→20:40)
[2019-08-23] MEDS: ALLOPURINOL 100 MG TABLET PO SCH ×2 (09:03→20:41)
[2019-08-23] MEDS: NOREPINEPHRINE 4 MG in DEXT 5% WATER 246 ML IV PRN (09:04)
[2019-08-23] MEDS ORDERED: VANCOMYCIN 750 MG PREMIX 150 ML IV SCH (12:00)
[2019-08-23] MEDS: CEFAZOLIN 1000MG PREMIX 50 ML IV SCH (17:17)
[2019-08-23] MEDS: DIGOXIN 125MCG TABLET PO SCH (17:17)
[2019-08-23] MEDS: MIDODRINE HCL 5MG TABLET PO SCH (17:17)
[2019-08-23] MEDS: ATORVASTATIN CALCIUM 10MG TABLET PO SCH (20:41)
[2019-08-23] MEDS: ACETAMINOPHEN 325MG TABLET PO PRN (20:58)
[2019-08-24] VITALS (72 sets, daily range): BP systolic 79–118; BP diastolic 27–89
[2019-08-24] MEDS: CEFAZOLIN 1000MG PREMIX 50 ML IV SCH ×3 (00:52→17:38)
[2019-08-24] MEDS: ACETAMINOPHEN 325MG TABLET PO PRN (05:31)
[2019-08-24] MEDS: OMEPRAZOLE 20MG CAPSULE EXTENDED RELEASE PO SCH (05:31)
[2019-08-24 05:48] LABS: CHLORIDE 97 mEq/L (98-107)
[2019-08-24] MEDS: MEXILETINE HCL 200 MG CAPSULE PO SCH ×2 (08:52→21:02)
[2019-08-24] MEDS: APIXABAN 5 MG TABLET PO SCH ×2 (08:52→17:38)
[2019-08-24] MEDS: ALLOPURINOL 100 MG TABLET PO SCH ×2 (08:54→21:03)
[2019-08-24] MEDS: CARVEDILOL 3.125 MG TABLET PO SCH ×2 (08:54→21:02)
[2019-08-24] MEDS: MIDODRINE HCL 5MG TABLET PO SCH ×3 (08:54→17:38)
[2019-08-24] MEDS: AMIODARONE HCL 200 MG TABLET PO SCH ×2 (08:54→21:03)
[2019-08-24 12:20] LABS: BG BASE EXCESS 4.8 mmol/L (-2.0-2.0); BG CARBOXYHEMOGLOBIN 1.1 % (0.5-1.5); BG DEOXYHEMOGLOBIN 3.9 % (0.0-5.0); BG FRACTION INSPIRED OXYGEN 21; BG HCO3 ACT 28.8 mmol/L (22.0-26.0); BG METHEMOGLOBIN 0.1 % (0.0-1.5); BG OXYGEN SATURATION 96.1 % (92.0-98.5); BG OXYHEMOGLOBIN 94.9 % (94.0-97.0); BG PCO2 40.7 mmHg (35.0-45.0); BG PH 7.468 (7.350-7.450); BG PO2 79.7 mmHg (75.0-100.0); BG SAMPLE SITE RIGHT RADIAL; BG TOTAL HEMOGLOBIN 13.6 g/dL (12.0-18.0); BG VENT MODE ROOM AIR
[2019-08-24 13:06] LABS: HEMATOCRIT. 40.9 % (42.0-52.0); HEMOGLOBIN. 13.4 g/dL (14.0-18.0); MEAN CORPUSCULAR HEMOGLOBIN 29.6 pg (28.0-32.0); MEAN CORPUSCULAR VOLUME 90.6 fL (80.0-94.0); MEAN PLATELET VOLUME 7.7 fl (7.4-10.4); PLATELET 213 x1000/uL (130-400); RED BLOOD CELL COUNT 4.52 mill/uL (4.7-6.1); RED CELL DISTRIBUTION WIDTH 23.1 % (11.6-14.6)
[2019-08-24 13:09] LABS: INR 1.3; PROTHROMBIN TIME 12.8 sec (9.6-11.0)
[2019-08-24 13:29] LABS: CREATINE KINASE MB FRACTION 2.5 ng/mL (0.5-3.6)
[2019-08-24] MEDS: DIGOXIN 125MCG TABLET PO SCH (17:38)
[2019-08-24] MEDS: ATORVASTATIN CALCIUM 10MG TABLET PO SCH (21:02)
[2019-08-24] MEDS: LACTULOSE 20G/30ML UDC PO SCH (21:03)
[2019-08-24 23:11] LABS: PLATELET ESTIMATE NORMAL
[2019-08-25] VITALS: BP 97/58
[2019-08-25] MEDS: CEFAZOLIN 1000MG PREMIX 50 ML IV SCH ×3 (00:17→18:15)
[2019-08-25 04:00] VITALS: BP 99/57
[2019-08-25] MEDS: LACTULOSE 20G/30ML UDC PO SCH ×4 (06:22→22:12)
[2019-08-25] MEDS: OMEPRAZOLE 20MG CAPSULE EXTENDED RELEASE PO SCH (06:22)
[2019-08-25 06:34] LABS: EOSINOPHILS % 0.2 % (0.0-5.0); HEMATOCRIT. 39.9 % (42.0-52.0); HEMOGLOBIN. 12.9 g/dL (14.0-18.0); LYMPHOCYTES % 7.7 % (20.0-50.0); MEAN CORPUSCULAR HEMOGLOBIN 29.4 pg (28.0-32.0); MEAN CORPUSCULAR VOLUME 90.8 fL (80.0-94.0); MEAN PLATELET VOLUME 8.2 fl (7.4-10.4); MONOCYTES % 6.6 % (2.0-8.0); NEUTROPHILS % 84.5 % (40.0-76.0); PLATELET 197 x1000/uL (130-400); RED CELL DISTRIBUTION WIDTH 23.4 % (11.6-14.6)
[2019-08-25 06:59] LABS: CHLORIDE 98 mEq/L (98-107)
[2019-08-25 07:14] LABS: HDL CHOLESTEROL 27 mg/dL (40-59)
[2019-08-25 07:15] LABS: LDL CHOLESTEROL 72 mg/dL (5-100)
[2019-08-25 08:00] VITALS: BP 90/54
[2019-08-25] MEDS: CARVEDILOL 3.125 MG TABLET PO SCH ×2 (09:00→20:11)
[2019-08-25] MEDS: AMIODARONE HCL 200 MG TABLET PO SCH ×2 (10:24→20:11)
[2019-08-25] MEDS: ALLOPURINOL 100 MG TABLET PO SCH ×2 (10:24→20:11)
[2019-08-25] MEDS: MIDODRINE HCL 5MG TABLET PO SCH ×3 (10:24→18:15)
[2019-08-25] MEDS: APIXABAN 5 MG TABLET PO SCH ×2 (10:25→18:15)
[2019-08-25 12:00] VITALS: BP 105/60
[2019-08-25] MEDS: MEXILETINE HCL 200 MG CAPSULE PO SCH ×2 (14:25→22:12)
[2019-08-25 16:00] VITALS: BP 108/66
[2019-08-25] MEDS: DIGOXIN 125MCG TABLET PO SCH (18:15)
[2019-08-25 20:00] VITALS: BP 102/65
[2019-08-25] MEDS: ATORVASTATIN CALCIUM 10MG TABLET PO SCH (20:10)
[2019-08-26] VITALS: BP_SYST 96; BP_SYST 98; BP_SYST 99; BP_DIAS 59; BP_DIAS 60
[2019-08-26] MEDS: CEFAZOLIN 1000MG PREMIX 50 ML IV SCH ×2 (01:15→08:19)
[2019-08-26 04:00] VITALS: BP 96/60
[2019-08-26] MEDS: LACTULOSE 20G/30ML UDC PO SCH ×4 (05:24→21:54)
[2019-08-26 07:52] VITALS: BP 99/57
[2019-08-26] MEDS: CARVEDILOL 3.125 MG TABLET PO SCH ×2 (08:04→21:54)
[2019-08-26] MEDS: MEXILETINE HCL 200 MG CAPSULE PO SCH ×2 (08:17→21:55)
[2019-08-26] MEDS: APIXABAN 5 MG TABLET PO SCH ×2 (08:18→16:55)
[2019-08-26] MEDS: ALLOPURINOL 100 MG TABLET PO SCH ×2 (08:19→21:54)
[2019-08-26] MEDS: MIDODRINE HCL 5MG TABLET PO SCH ×3 (08:19→16:55)
[2019-08-26] MEDS: AMIODARONE HCL 200 MG TABLET PO SCH ×2 (08:19→21:54)
[2019-08-26] MEDS: FAMOTIDINE 20MG TABLET PO SCH ×2 (08:19→21:54)
[2019-08-26 11:45] VITALS: BP_SYST 100; BP_SYST 97; BP_SYST 99; BP_DIAS 60; BP_DIAS 61; BP_DIAS 68
[2019-08-26 16:00] VITALS: BP 105/70
[2019-08-26] MEDS: DIGOXIN 125MCG TABLET PO SCH (17:34)
[2019-08-26] MEDS ORDERED: VANCOMYCIN 1500MG in DEXTROSE 5% WATER 250ML IV SCH (18:00)
[2019-08-26 20:00] VITALS: BP_SYST 102; BP_SYST 104; BP_SYST 105; BP_DIAS 63; BP_DIAS 68; BP_DIAS 75
[2019-08-26] MEDS: ATORVASTATIN CALCIUM 10MG TABLET PO SCH (21:54)
[2019-08-27] VITALS: BP 98/63
[2019-08-27 04:00] VITALS: BP 98/53
[2019-08-27] MEDS: LACTULOSE 20G/30ML UDC PO SCH ×2 (05:19→12:11)
[2019-08-27] MEDS ORDERED: VANCOMYCIN 750 MG PREMIX 150 ML IV SCH (06:00)
[2019-08-27 07:56] VITALS: BP 112/44
[2019-08-27] MEDS: APIXABAN 5 MG TABLET PO SCH ×2 (08:36→17:01)
[2019-08-27] MEDS: FAMOTIDINE 20MG TABLET PO SCH (08:36)
[2019-08-27] MEDS: ALLOPURINOL 100 MG TABLET PO SCH (08:36)
[2019-08-27] MEDS: AMIODARONE HCL 200 MG TABLET PO SCH (08:36)
[2019-08-27] MEDS: MEXILETINE HCL 200 MG CAPSULE PO SCH (08:36)
[2019-08-27] MEDS: MIDODRINE HCL 5MG TABLET PO SCH ×3 (08:36→17:01)
[2019-08-27] MEDS: CARVEDILOL 3.125 MG TABLET PO SCH (08:37)
[2019-08-27 12:00] VITALS: BP_SYST 102; BP_SYST 90; BP_DIAS 60; BP_DIAS 66; BP_DIAS 68
[2019-08-27 12:33] LABS: BASOPHILS % 1.3 % (0.0-2.0); EOSINOPHILS % 0.1 % (0.0-5.0); HEMATOCRIT. 39.3 % (42.0-52.0); HEMOGLOBIN. 12.6 g/dL (14.0-18.0); LYMPHOCYTES % 9.3 % (20.0-50.0); MEAN CORPUSCULAR HEMOGLOBIN 29.9 pg (28.0-32.0); MEAN CORPUSCULAR VOLUME 93.2 fL (80.0-94.0); MEAN PLATELET VOLUME 8.7 fl (7.4-10.4); MONOCYTES % 9.7 % (2.0-8.0); NEUTROPHILS % 79.6 % (40.0-76.0); PLATELET 234 x1000/uL (130-400); RED BLOOD CELL COUNT 4.22 mill/uL (4.7-6.1)
[2019-08-27 12:38] LABS: CHLORIDE 97 mEq/L (98-107)
[2019-08-27] MEDS ORDERED: SULF1TAB48 MT (14:01)
[2019-08-27] MEDS ORDERED: MIDO5TAB4 MT (14:01)
[2019-08-27 14:20] VITALS: BP 102/68
[2019-08-27 16:00] VITALS: BP 99/66
== END 2019-08-27 17:52 | disposition home health service (06) | DRG 871 ==
LOC: ER 18:20 → MICUNO 08-21 00:31 → EDBEDREQ 08-21 00:33 → EDBEDREQDT 08-21 00:33 → EDBEDREQTM 08-21 00:33 → EDBEDREQSVC 08-21 01:24 → ENRESERV 08-21 08:25 → 8WST 08-24 21:50
PROVIDERS: ADMIT Internal Medicine; ATTEND Internal Medicine
PROC: 06HY33Z Insertion of Infusion Device into Lower Vein, Percutaneous Approach (ICD-10-PCS; principal; 2019-08-20)
PROC: B54BZZA Ultrasonography of Right Lower Extremity Veins, Guidance (ICD-10-PCS; 2019-08-20)
DX: A41.9 Sepsis, unspecified organism (principal); I21.4 Non-ST elevation (NSTEMI) myocardial infarction; L03.116 Cellulitis of left lower limb; R57.9 Shock, unspecified; I42.0 Dilated cardiomyopathy; I50.22 Chronic systolic (congestive) heart failure; I48.19 Other persistent atrial fibrillation; L03.115 Cellulitis of right lower limb; D68.59 Other primary thrombophilia; I13.0 Hypertensive heart and chronic kidney disease with heart failure and stage 1 through stage 4 chronic kidney disease, or unspecified chronic kidney disease; E87.1 Hypo-osmolality and hyponatremia; I42.8 Other cardiomyopathies; R18.8 Other ascites; G93.40 Encephalopathy, unspecified; F03.90 Unspecified dementia, unspecified severity, without behavioral disturbance, psychotic disturbance, mood disturbance, and anxiety; N18.9 Chronic kidney disease, unspecified; M10.9 Gout, unspecified; I25.10 Atherosclerotic heart disease of native coronary artery without angina pectoris; D64.9 Anemia, unspecified; I08.3 Combined rheumatic disorders of mitral, aortic and tricuspid valves; N28.1 Cyst of kidney, acquired; K76.9 Liver disease, unspecified; I73.9 Peripheral vascular disease, unspecified; Z82.49 Family history of ischemic heart disease and other diseases of the circulatory system; Z95.810 Presence of automatic (implantable) cardiac defibrillator; Z79.82 Long term (current) use of aspirin; Z79.899 Other long term (current) drug therapy; Z90.49 Acquired absence of other specified parts of digestive tract
CPT/HCPCS: 36415; 36600; 71045; 76700; 80048; 80053; 80061; 80162; 80202; 80305; 80320; 81003; 82140; 82375; 82550; 82553; 82805; 83605; 83735; 84145; 84439; 84443; 84484; 85025; 93005; 93923; 93970; 97116; 97162; 99285; J0690; J2543; J3370; J3490; J7030; J7040; J7060; G0480